=== PATIENT | female | born 1970 | race African-American/Black ===

== ENCOUNTER 2022-02-21 21:11 | Inpatient (IN) | payer MEDICAID, OTHER ==
[~2022-02-21] VITALS: Ht 165.1 cm; Wt 100.2 kg
[~2022-02-21 21:11] MED LIST: ALLO100T PO; CLOT21CR VG; DOCU-150 PO; INSU100I28 SQ; LACT10SO7 PO; MULT-1146 PO; QUET50TA23 PO; RISP2TAB85 PO; XAR15 PO
[2022-02-21 23:45] LABS: CHLORIDE 97 mEq/L (98-107)
[2022-02-21 23:53] LABS: BG BASE EXCESS 5.2 mmol/L (-2.0-2.0); BG CARBOXYHEMOGLOBIN 1.7 % (0.5-1.5); BG DEOXYHEMOGLOBIN 1.8 % (0.0-5.0); BG HCO3 ACT 32.9 mmol/L (22.0-26.0); BG METHEMOGLOBIN 0.5 % (0.0-1.5); BG OXYGEN SATURATION 98.2 % (92.0-98.5); BG PCO2 63.4 mmHg (35.0-45.0); BG PH 7.333 (7.350-7.450); BG PO2 131.8 mmHg (75.0-100.0); BG TOTAL HEMOGLOBIN 13.1 g/dL (12.0-18.0)
[2022-02-22 00:18] LABS: BASOPHILS % 0.2 % (0.0-2.0); HEMATOCRIT. 37.8 % (36.0-48.0); HEMOGLOBIN. 11.4 g/dL (12.0-16.0); LYMPHOCYTES % 18.3 % (20.0-50.0); MEAN CORPUSCULAR HEMOGLOBIN 22.3 pg (28.0-32.0); MEAN CORPUSCULAR VOLUME 73.6 fL (81.0-99.0); MEAN PLATELET VOLUME 9.1 fl (7.4-10.4); MONOCYTES % 8.6 % (2.0-8.0); NEUTROPHILS % 72.9 % (40.0-76.0); PLATELET 262 x1000/uL (130-400); RED BLOOD CELL COUNT 5.14 mill/uL (4.2-5.4); RED CELL DISTRIBUTION WIDTH 21.8 % (11.6-14.6)
[2022-02-22] MEDS ORDERED: AZITHROMYCIN 500MG/250ML 250 ML IV ONE (00:45)
[2022-02-22] MEDS ORDERED: CEFTRIAXONE 1 G PREMIX 50 ML IV ONE (00:45)
[2022-02-22] MEDS ORDERED: APIXABAN 5 MG TABLET PO ONE (00:45)
[2022-02-22 00:51] LABS: PLATELET ESTIMATE NORMAL
[2022-02-22] MEDS ORDERED: FUROSEMIDE 40MG/4ML VIAL IVP NR (01:00)
[2022-02-22] MEDS ORDERED: DEXTROSE 50% WATER 50ML SYRINGE IV PRN (02:15)
[2022-02-22] MEDS ORDERED: MAGNESIUM/ALUMINUM HYDROXIDE/SIMETHICONE 30ML UDC PO PRN (02:15)
[2022-02-22] MEDS ORDERED: CLONIDINE 0.1MG TABLET PO PRN (02:15)
[2022-02-22] MEDS ORDERED: ONDANSETRON HCL 4MG/2ML INJ IV PRN (02:15)
[2022-02-22] MEDS ORDERED: ACETAMINOPHEN 325MG TABLET PO PRN (02:15)
[2022-02-22] MEDS ORDERED: IPRATROPIUM/ALBUTEROL 0.5-3(2.5)MG/3ML NEB NEB PRN (02:15)
[2022-02-22] MEDS ORDERED: DOCUSATE SODIUM 100MG CAPSULE PO PRN (02:15)
[2022-02-22] MEDS ORDERED: GUAIFENESIN 200MG/10ML SUGAR FREE UDC PO PRN (02:15)
[2022-02-22] MEDS ORDERED: LACTULOSE 20G/30ML UDC PO NR (02:45)
[2022-02-22] MEDS ORDERED: AZITHROMYCIN 500 MG in DEXT 5% WATER 250 ML IV SCH (03:00)
[2022-02-22] MEDS ORDERED: CEFTRIAXONE 1 G PREMIX 50 ML IV SCH (04:00)
[2022-02-22] MEDS ORDERED: SODIUM POLYSTYRENE SULFONATE 15 G/60 ML BOT PO NR (04:00)
[2022-02-22] MEDS: BLOOD SUGAR DIAGNOSTIC STRIP TEST SCH ×4 (06:30→21:00)
[2022-02-22] MEDS: INSULIN LISPRO 100 UNITS/ML SUBCUT SCH ×4 (07:00→21:00)
[2022-02-22 08:39] LABS: CREATINE KINASE MB FRACTION 2.5 ng/mL (0.5-3.6)
[2022-02-22 08:57] LABS: TOTAL IRON BINDING CAPACITY 428 ug/dL (250-450)
[2022-02-22] MEDS ORDERED: ENOXAPARIN 40MG/0.4ML SYR SUBCUT SCH (09:00)
[2022-02-22] MEDS: FUROSEMIDE 100MG/10ML VIAL IVP SCH ×2 (09:45→20:01)
[2022-02-22] MEDS: FAMOTIDINE 20MG/2ML VIAL IV SCH (09:47)
[2022-02-22 11:14] LABS: INR 1.8; PROTHROMBIN TIME 18.2 sec (9.6-11.0)
[2022-02-22 11:36] LABS: CHLORIDE 99 mEq/L (98-107)
[2022-02-22 11:40] LABS: ETHANOL BLOOD < 10 mg/dL
[2022-02-22] MEDS ORDERED: ENOXAPARIN 60MG/0.6ML SYR SUBCUT SCH (12:00)
[2022-02-22 15:45] LABS: BG BASE EXCESS 7.5 mmol/L (-2.0-2.0); BG CARBOXYHEMOGLOBIN 1.9 % (0.5-1.5); BG DEOXYHEMOGLOBIN 6.9 % (0.0-5.0); BG FRACTION INSPIRED OXYGEN 60; BG HCO3 ACT 35.9 mmol/L (22.0-26.0); BG METHEMOGLOBIN 0.4 % (0.0-1.5); BG OXYGEN SATURATION 92.9 % (92.0-98.5); BG OXYHEMOGLOBIN 90.8 % (94.0-97.0); BG PCO2 70.8 mmHg (35.0-45.0); BG PH 7.323 (7.350-7.450); BG PO2 72.1 mmHg (75.0-100.0); BG SAMPLE SITE RIGHT BRACHIAL; BG TOTAL HEMOGLOBIN 12.6 g/dL (12.0-18.0); BG TOTAL RESPIRATORY RATE 21 b/min; BG VENT MODE MASK - BIPAP
[2022-02-22] MEDS: ALLOPURINOL 100 MG TABLET PO SCH (16:20)
[2022-02-22 16:54] LABS: CREATINE KINASE MB FRACTION 2.2 ng/mL (0.5-3.6)
[2022-02-22] MEDS: SILDENAFIL CITRATE 20MG TABLET PO SCH ×2 (18:54→23:00)
[2022-02-22 20:35] VITALS: BP 144/65
[2022-02-22 20:50] VITALS: BP 144/65
[2022-02-22] MEDS: QUETIAPINE FUMARATE 50MG TABLET PO SCH (21:45)
[2022-02-22] MEDS: ENOXAPARIN 100MG/ML SYR SUBCUT SCH (21:45)
[2022-02-22 22:00] VITALS: BP 122/68
[2022-02-22 22:24] LABS: CLARITY URINE CLEAR (CLEAR); COLOR URINE YELLOW (YELLOW); KETONES URINE NEGATIVE (NEGATIVE); LEUKOCYTE ESTERASE URINE NEGATIVE (NEGATIVE); NITRITE URINE NEGATIVE (NEGATIVE); OCCULT BLOOD URINE 2+ (NEGATIVE); PROTEIN URINE NEGATIVE (NEGATIVE); SPECIFIC GRAVITY URINE 1.008 (1.005-1.030); UROBILINOGEN URINE 0.2 E.U./dL (0.2-1.0)
[2022-02-22 22:43] LABS: *AMPHETAMINES SCREEN URINE NEGATIVE (NEGATIVE); *BARBITURATES SCREEN URINE NEGATIVE (NEGATIVE); *BENZODIAZEPINES SCREEN URINE NEGATIVE (NEGATIVE); *COCAINE SCREEN URINE NEGATIVE (NEGATIVE); CANNABINOID URINE SCREEN NEGATIVE (NEGATIVE); METHADONE URINE SCREEN NEGATIVE (NEGATIVE); OPIATES URINE SCREEN NEGATIVE (NEGATIVE); PHENCYCLIDINE URINE SCREEN NEGATIVE (NEGATIVE)
[2022-02-23] VITALS (18 sets, daily range): BP systolic 97–139; BP diastolic 57–99
[2022-02-23] MEDS: IPRATROPIUM/ALBUTEROL 0.5-3(2.5)MG/3ML NEB HHN SCH ×3 (02:14→21:48)
[2022-02-23] MEDS: AZITHROMYCIN 500 MG in DEXT 5% WATER 250 ML IV SCH (03:08)
[2022-02-23] MEDS: CEFTRIAXONE 1,000 MG in DEXTROSE 5% WATER 50 ML IV SCH (05:00)
[2022-02-23] MEDS: SILDENAFIL CITRATE 20MG TABLET PO SCH ×3 (06:31→21:04)
[2022-02-23] MEDS: BLOOD SUGAR DIAGNOSTIC STRIP TEST SCH ×4 (07:30→20:59)
[2022-02-23] MEDS: INSULIN LISPRO 100 UNITS/ML SUBCUT SCH ×4 (08:00→21:21)
[2022-02-23 08:53] LABS: BG BASE EXCESS 13.7 mmol/L (-2.0-2.0); BG CARBOXYHEMOGLOBIN 1.1 % (0.5-1.5); BG DEOXYHEMOGLOBIN 4.8 % (0.0-5.0); BG FRACTION INSPIRED OXYGEN 60; BG HCO3 ACT 43.5 mmol/L (22.0-26.0); BG METHEMOGLOBIN 0.4 % (0.0-1.5); BG OXYGEN SATURATION 95.1 % (92.0-98.5); BG OXYHEMOGLOBIN 93.7 % (94.0-97.0); BG PCO2 86.8 mmHg (35.0-45.0); BG PH 7.318 (7.350-7.450); BG PO2 82.8 mmHg (75.0-100.0); BG SAMPLE SITE RIGHT RADIAL; BG TOTAL HEMOGLOBIN 12.5 g/dL (12.0-18.0); BG VENT MODE MASK - BIPAP
[2022-02-23] MEDS: ALLOPURINOL 100 MG TABLET PO SCH (09:06)
[2022-02-23] MEDS: FAMOTIDINE 20MG/2ML VIAL IV SCH (09:06)
[2022-02-23] MEDS: ENOXAPARIN 100MG/ML SYR SUBCUT SCH ×2 (09:06→21:04)
[2022-02-23] MEDS: FUROSEMIDE 100MG/10ML VIAL IVP SCH ×2 (09:06→17:00)
[2022-02-23 10:45] LABS: BASOPHILS % 0.3 % (0.0-2.0); EOSINOPHILS % 0.7 % (0.0-5.0); HEMATOCRIT. 36.6 % (36.0-48.0); HEMOGLOBIN. 11.3 g/dL (12.0-16.0); LYMPHOCYTES % 21.9 % (20.0-50.0); MEAN CORPUSCULAR HEMOGLOBIN 22.7 pg (28.0-32.0); MEAN CORPUSCULAR VOLUME 73.9 fL (81.0-99.0); MEAN PLATELET VOLUME 9.2 fl (7.4-10.4); MONOCYTES % 9.6 % (2.0-8.0); NEUTROPHILS % 67.5 % (40.0-76.0); PLATELET 212 x1000/uL (130-400); RED BLOOD CELL COUNT 4.96 mill/uL (4.2-5.4); RED CELL DISTRIBUTION WIDTH 22.8 % (11.6-14.6)
[2022-02-23 10:53] LABS: CHLORIDE 99 mEq/L (98-107)
[2022-02-23 11:06] LABS: T4 FREE 1.12 ng/dL (0.76-1.46)
[2022-02-23] MEDS: METHYLPREDNISOLONE SOD SUCC 125 MG/2 ML VIAL IV SCH ×2 (14:29→21:04)
[2022-02-23] MEDS ORDERED: MAGNESIUM 2 G PREMIX 50 ML IV NR (15:30)
[2022-02-23] MEDS ORDERED: IOHEXOL-350 100 ML BOTTLE ONE (17:18)
[2022-02-23] MEDS: QUETIAPINE FUMARATE 50MG TABLET PO SCH (21:04)
[2022-02-24] VITALS (10 sets, daily range): BP systolic 106–130; BP diastolic 54–85
[2022-02-24] MEDS: AZITHROMYCIN 500 MG in DEXT 5% WATER 250 ML IV SCH (00:33)
[2022-02-24] MEDS: IPRATROPIUM/ALBUTEROL 0.5-3(2.5)MG/3ML NEB HHN SCH ×4 (02:43→19:41)
[2022-02-24] MEDS: CEFTRIAXONE 1,000 MG in DEXTROSE 5% WATER 50 ML IV SCH (03:57)
[2022-02-24] MEDS: SILDENAFIL CITRATE 20MG TABLET PO SCH ×3 (06:00→22:51)
[2022-02-24] MEDS: METHYLPREDNISOLONE SOD SUCC 125 MG/2 ML VIAL IV SCH ×2 (06:25→16:32)
[2022-02-24 07:12] LABS: *CREATININE RANDOM URINE 18.8 mg/dL (Not Estab.); MICROALBUMIN RANDOM URINE 5.6 ug/mL (Not Estab.)
[2022-02-24] MEDS: BLOOD SUGAR DIAGNOSTIC STRIP TEST SCH ×4 (07:30→21:00)
[2022-02-24] MEDS: INSULIN LISPRO 100 UNITS/ML SUBCUT SCH ×4 (08:00→22:54)
[2022-02-24 08:16] LABS: BG BASE EXCESS 18.2 mmol/L (-2.0-2.0); BG CARBOXYHEMOGLOBIN 0.8 % (0.5-1.5); BG DEOXYHEMOGLOBIN 1.8 % (0.0-5.0); BG FRACTION INSPIRED OXYGEN 70; BG HCO3 ACT 47.8 mmol/L (22.0-26.0); BG METHEMOGLOBIN 0.6 % (0.0-1.5); BG OXYGEN SATURATION 98.2 % (92.0-98.5); BG OXYHEMOGLOBIN 96.8 % (94.0-97.0); BG PCO2 86.1 mmHg (35.0-45.0); BG PH 7.362 (7.350-7.450); BG SAMPLE SITE RIGHT RADIAL; BG TOTAL HEMOGLOBIN 12.3 g/dL (12.0-18.0); BG TOTAL RESPIRATORY RATE 20 b/min; BG VENT MODE MASK - BIPAP
[2022-02-24 09:11] LABS: CHLORIDE 92 mEq/L (98-107)
[2022-02-24 09:13] LABS: BASOPHILS % 0.3 % (0.0-2.0); EOSINOPHILS % 0.1 % (0.0-5.0); HEMATOCRIT. 35.6 % (36.0-48.0); HEMOGLOBIN. 11.1 g/dL (12.0-16.0); LYMPHOCYTES % 10.1 % (20.0-50.0); MEAN CORPUSCULAR HEMOGLOBIN 22.8 pg (28.0-32.0); MEAN CORPUSCULAR VOLUME 73.3 fL (81.0-99.0); MEAN PLATELET VOLUME 9.2 fl (7.4-10.4); MONOCYTES % 2.4 % (2.0-8.0); NEUTROPHILS % 87.1 % (40.0-76.0); PLATELET 214 x1000/uL (130-400); RED BLOOD CELL COUNT 4.86 mill/uL (4.2-5.4); RED CELL DISTRIBUTION WIDTH 22.9 % (11.6-14.6)
[2022-02-24 09:24] LABS: PHOSPHORUS 3.1 mg/dL (2.5-4.9)
[2022-02-24] MEDS: FAMOTIDINE 20MG/2ML VIAL IV SCH (09:32)
[2022-02-24] MEDS: FUROSEMIDE 100MG/10ML VIAL IVP SCH ×2 (09:32→16:32)
[2022-02-24] MEDS: ALLOPURINOL 100 MG TABLET PO SCH (09:33)
[2022-02-24] MEDS: ENOXAPARIN 100MG/ML SYR SUBCUT SCH ×2 (09:33→22:50)
[2022-02-24] MEDS: MAGNESIUM OXIDE 400MG TABLET PO SCH (09:34)
[2022-02-24] MEDS: QUETIAPINE FUMARATE 50MG TABLET PO SCH (22:49)
[2022-02-25] VITALS (10 sets, daily range): BP systolic 109–135; BP diastolic 45–71
[2022-02-25] MEDS: IPRATROPIUM/ALBUTEROL 0.5-3(2.5)MG/3ML NEB HHN SCH ×4 (01:06→21:23)
[2022-02-25] MEDS: CEFTRIAXONE 1,000 MG in DEXTROSE 5% WATER 50 ML IV SCH (05:27)
[2022-02-25 05:59] LABS: CHLORIDE 88 mEq/L (98-107)
[2022-02-25 06:14] LABS: HEMATOCRIT. 37.4 % (36.0-48.0); HEMOGLOBIN. 11.3 g/dL (12.0-16.0); MEAN CORPUSCULAR HEMOGLOBIN 22.1 pg (28.0-32.0); MEAN CORPUSCULAR VOLUME 72.7 fL (81.0-99.0); MEAN PLATELET VOLUME 9.8 fl (7.4-10.4); PLATELET 248 x1000/uL (130-400); RED BLOOD CELL COUNT 5.14 mill/uL (4.2-5.4); RED CELL DISTRIBUTION WIDTH 22.4 % (11.6-14.6)
[2022-02-25] MEDS: SILDENAFIL CITRATE 20MG TABLET PO SCH ×3 (06:56→21:24)
[2022-02-25] MEDS: BLOOD SUGAR DIAGNOSTIC STRIP TEST SCH ×4 (07:30→21:32)
[2022-02-25] MEDS: INSULIN LISPRO 100 UNITS/ML SUBCUT SCH ×4 (08:00→21:31)
[2022-02-25] MEDS: ALLOPURINOL 100 MG TABLET PO SCH (09:56)
[2022-02-25] MEDS: FAMOTIDINE 20MG TABLET PO SCH (09:56)
[2022-02-25] MEDS: FUROSEMIDE 100MG/10ML VIAL IVP SCH (09:56)
[2022-02-25] MEDS: MAGNESIUM OXIDE 400MG TABLET PO SCH (09:56)
[2022-02-25] MEDS: ENOXAPARIN 100MG/ML SYR SUBCUT SCH ×2 (09:57→21:26)
[2022-02-25] MEDS: AZITHROMYCIN 500 MG TABLET PO SCH (10:00)
[2022-02-25 10:03] LABS: NUCLEATED RED BLOOD CELLS 8 /100 WBC; PLATELET ESTIMATE NORMAL
[2022-02-25] MEDS ORDERED: BISACODYL 5MG TABLET PO NR (11:30)
[2022-02-25 14:32] LABS: BG BASE EXCESS 19.7 mmol/L (-2.0-2.0); BG CARBOXYHEMOGLOBIN 1.6 % (0.5-1.5); BG DEOXYHEMOGLOBIN 4.7 % (0.0-5.0); BG FRACTION INSPIRED OXYGEN 36; BG HCO3 ACT 48.2 mmol/L (22.0-26.0); BG METHEMOGLOBIN 0.5 % (0.0-1.5); BG OXYGEN SATURATION 95.2 % (92.0-98.5); BG OXYHEMOGLOBIN 93.2 % (94.0-97.0); BG PCO2 74.8 mmHg (35.0-45.0); BG PH 7.427 (7.350-7.450); BG PO2 76.7 mmHg (75.0-100.0); BG SAMPLE SITE RIGHT BRACHIAL; BG TOTAL HEMOGLOBIN 13.1 g/dL (12.0-18.0); BG VENT MODE NASAL CANNULA
[2022-02-25] MEDS: FUROSEMIDE 40MG TABLET PO SCH (17:59)
[2022-02-25] MEDS: QUETIAPINE FUMARATE 50MG TABLET PO SCH (21:23)
[2022-02-25] MEDS: INSULIN GLARGINE 100 UNITS/ML SUBCUT SCH (21:32)
[2022-02-26] VITALS (11 sets, daily range): BP systolic 117–126; BP diastolic 65–80
[2022-02-26] MEDS: IPRATROPIUM/ALBUTEROL 0.5-3(2.5)MG/3ML NEB HHN SCH ×3 (01:16→22:13)
[2022-02-26 05:26] LABS: CHLORIDE 92 mEq/L (98-107)
[2022-02-26] MEDS: SILDENAFIL CITRATE 20MG TABLET PO SCH ×3 (05:29→20:59)
[2022-02-26] MEDS: CEFTRIAXONE 1,000 MG in DEXTROSE 5% WATER 50 ML IV SCH (05:29)
[2022-02-26 05:36] LABS: PHOSPHORUS 2.3 mg/dL (2.5-4.9)
[2022-02-26 06:21] LABS: BASOPHILS % 0.1 % (0.0-2.0); HEMATOCRIT. 38.9 % (36.0-48.0); LYMPHOCYTES % 20.1 % (20.0-50.0); MEAN CORPUSCULAR HEMOGLOBIN 22.6 pg (28.0-32.0); MEAN CORPUSCULAR VOLUME 73.4 fL (81.0-99.0); MEAN PLATELET VOLUME 9.4 fl (7.4-10.4); MONOCYTES % 7.9 % (2.0-8.0); NEUTROPHILS % 71.9 % (40.0-76.0); PLATELET 226 x1000/uL (130-400); RED CELL DISTRIBUTION WIDTH 22.9 % (11.6-14.6)
[2022-02-26] MEDS: BLOOD SUGAR DIAGNOSTIC STRIP TEST SCH ×4 (07:44→20:49)
[2022-02-26] MEDS: FAMOTIDINE 20MG TABLET PO SCH (09:00)
[2022-02-26] MEDS: ALLOPURINOL 100 MG TABLET PO SCH (09:01)
[2022-02-26] MEDS: FUROSEMIDE 40MG TABLET PO SCH ×2 (09:01→18:29)
[2022-02-26] MEDS: AZITHROMYCIN 500 MG TABLET PO SCH (09:01)
[2022-02-26] MEDS: MAGNESIUM OXIDE 400MG TABLET PO SCH (09:01)
[2022-02-26] MEDS: ENOXAPARIN 100MG/ML SYR SUBCUT SCH ×2 (09:03→20:59)
[2022-02-26] MEDS: INSULIN LISPRO 100 UNITS/ML SUBCUT SCH ×4 (09:03→21:00)
[2022-02-26] MEDS: QUETIAPINE FUMARATE 50MG TABLET PO SCH (21:00)
[2022-02-26] MEDS: INSULIN GLARGINE 100 UNITS/ML SUBCUT SCH (21:00)
[2022-02-27] VITALS (9 sets, daily range): BP systolic 93–146; BP diastolic 53–89
[2022-02-27] MEDS: IPRATROPIUM/ALBUTEROL 0.5-3(2.5)MG/3ML NEB HHN SCH ×2 (01:49→08:28)
[2022-02-27] MEDS: SILDENAFIL CITRATE 20MG TABLET PO SCH ×2 (06:00→14:28)
[2022-02-27] MEDS: BLOOD SUGAR DIAGNOSTIC STRIP TEST SCH ×2 (07:30→12:30)
[2022-02-27 08:00] LABS: CHLORIDE 95 mEq/L (98-107)
[2022-02-27 08:14] LABS: BASOPHILS % 0.2 % (0.0-2.0); EOSINOPHILS % 1.3 % (0.0-5.0); HEMATOCRIT. 38.4 % (36.0-48.0); MEAN CORPUSCULAR HEMOGLOBIN 22.8 pg (28.0-32.0); MEAN CORPUSCULAR VOLUME 73.4 fL (81.0-99.0); MEAN PLATELET VOLUME 9.1 fl (7.4-10.4); MONOCYTES % 8.6 % (2.0-8.0); NEUTROPHILS % 56.9 % (40.0-76.0); PLATELET 226 x1000/uL (130-400); RED BLOOD CELL COUNT 5.24 mill/uL (4.2-5.4); RED CELL DISTRIBUTION WIDTH 22.7 % (11.6-14.6)
[2022-02-27] MEDS: MAGNESIUM OXIDE 400MG TABLET PO SCH (09:00)
[2022-02-27] MEDS: ENOXAPARIN 100MG/ML SYR SUBCUT SCH (10:21)
[2022-02-27] MEDS: FAMOTIDINE 20MG TABLET PO SCH (10:21)
[2022-02-27] MEDS: ALLOPURINOL 100 MG TABLET PO SCH (10:21)
[2022-02-27] MEDS: FUROSEMIDE 40MG TABLET PO SCH (10:21)
[2022-02-27] MEDS: INSULIN LISPRO 100 UNITS/ML SUBCUT SCH ×2 (10:22→14:28)
== END 2022-02-27 19:12 | disposition home or self-care (01) | DRG 133 ==
LOC: ER 21:11 → MICUSO 02-22 01:01 → EDBEDREQDT 02-22 01:06 → EDBEDREQ 02-22 01:06 → EDBEDREQTM 02-22 01:06 → 5EST 02-22 23:32
PROVIDERS: ADMIT Internal Medicine; ATTEND Internal Medicine
PROC: 5A09357 Assistance with Respiratory Ventilation, Less than 24 Consecutive Hours, Continuous Positive Airway Pressure (ICD-10-PCS; principal; 2022-02-23)
PROC: 5A09357 Assistance with Respiratory Ventilation, Less than 24 Consecutive Hours, Continuous Positive Airway Pressure (ICD-10-PCS; 2022-02-24)
PROC: 5A09357 Assistance with Respiratory Ventilation, Less than 24 Consecutive Hours, Continuous Positive Airway Pressure (ICD-10-PCS; 2022-02-26)
DX: J96.21 Acute and chronic respiratory failure with hypoxia (principal); N17.0 Acute kidney failure with tubular necrosis; G93.41 Metabolic encephalopathy; E43 Unspecified severe protein-calorie malnutrition; I31.39 Other pericardial effusion (noninflammatory); E72.20 Disorder of urea cycle metabolism, unspecified; I50.33 Acute on chronic diastolic (congestive) heart failure; E87.20 Acidosis, unspecified; I48.0 Paroxysmal atrial fibrillation; I13.0 Hypertensive heart and chronic kidney disease with heart failure and stage 1 through stage 4 chronic kidney disease, or unspecified chronic kidney disease; E88.09 Other disorders of plasma-protein metabolism, not elsewhere classified; I27.21 Secondary pulmonary arterial hypertension; D50.9 Iron deficiency anemia, unspecified; E87.5 Hyperkalemia; K76.0 Fatty (change of) liver, not elsewhere classified; J96.22 Acute and chronic respiratory failure with hypercapnia; K57.90 Diverticulosis of intestine, part unspecified, without perforation or abscess without bleeding; I49.3 Ventricular premature depolarization; G47.33 Obstructive sleep apnea (adult) (pediatric); Z20.822 Contact with and (suspected) exposure to COVID-19; J44.9 Chronic obstructive pulmonary disease, unspecified; E78.5 Hyperlipidemia, unspecified; R16.0 Hepatomegaly, not elsewhere classified; E83.42 Hypomagnesemia; E11.22 Type 2 diabetes mellitus with diabetic chronic kidney disease; R74.01 Elevation of levels of liver transaminase levels; N18.9 Chronic kidney disease, unspecified; I82.509 Chronic embolism and thrombosis of unspecified deep veins of unspecified lower extremity; I07.1 Rheumatic tricuspid insufficiency; Z95.828 Presence of other vascular implants and grafts; Z99.81 Dependence on supplemental oxygen; Z79.01 Long term (current) use of anticoagulants; Z68.36 Body mass index [BMI] 36.0-36.9, adult; Z79.899 Other long term (current) drug therapy; Z79.4 Long term (current) use of insulin
CPT/HCPCS: 36415; 36600; 71045; 71275; 74177; 76700; 80048; 80053; 80061; 80162; 80305; 80320; 81003; 82043; 82140; 82375; 82436; 82550; 82553; 82570; 82728; 82805; 82962; 83036; 83540; 83550; 83605; 83735; 83880; 84100; 84145; 84300; 84439; 84443; 84484; 85025; 85379; 85651; 86038; 87426; 87804; 93005; 93306; 93970; 94640; 94660; 97162; 97166; 99291; J0456; J0696; J1650; J1815; J1940; J2930; J3475; J3490; J7060; Q9967; G0480